=== PATIENT | male | born 1995 | race African-American/Black ===

== ENCOUNTER 2021-03-25 07:49 | Emergency (ER) | payer SELFPAY ==
[~2021-03-25] VITALS: Ht 180.3 cm; Wt 122.4 kg
[2021-03-25] MEDS ORDERED: inhaler (08:05)
[2021-03-25] MEDS ORDERED: DIPH25TA64 PO (08:05)
[2021-03-25] MEDS ORDERED: IBUP600T16 PO (08:05)
[2021-03-25 09:03] VITALS: BP 156/90
--- NOTE | 2021-03-25 09:15 | PHYS DOC ---
Past History Past Medical History: Anxiety Additional Past Medical Histor: Seasonal allergies Past Surgical History: No Surgical History Alcohol Use: None General Adult EDM: Chief Complaint: MEDICAL CLEARANCE HPI: HPI: Patient is a 25 year old male who presents for evaluation on the request of his work. 2 days ago while at work he began to feel what he thought was a panic attack. He began feeling very anxious and felt his breathing speed up. He had some numbness in his bilateral hands and a sensation of heart racing.. He recognized this as a panic attack, which she has had several times in the past. He isolated himself and sat down and focused on slow, deep breathing. The panic attack past and he has been asymptomatic for the past 2 days. His employer asked him to get a medical evaluation prior to return to work. He does have a history of anxiety, but does not take any medications for it. Only medications are occasional ibuprofen and Benadryl for seasonal allergies. Denies taking large doses of Benadryl. Denies any chest pain, shortness of breath, cough, congestion, sore throat. No Covid contacts. No lower extremity edema or recurrent palpitations. No headaches. No speech difficulty, weakness, recurrent numbness, coordination difficulty or other neurologic symptoms. Review of Systems: Review of Systems: Constitutional: Denies fever or chills Eyes: Denies change in visual acuity HENT: Denies nasal congestion or sore throat Respiratory: Denies cough or shortness of breath Cardiovascular: Denies chest pain or edema. Reported brief self-limited palpitations. GI: Denies abdominal pain, nausea, vomiting, bloody stools or diarrhea : Denies dysuria Musculoskeletal: Denies back pain or joint pain Integument: Denies rash Neurologic: Denies headache, focal weakness. reported brief self-limited numbness in bilateral hands. Endocrine: Denies polyuria or polydipsia Lymphatic: Denies swollen glands Psychiatric: Reports an anxiety attack Allergies: Allergies: Allergies Coded Allergies Type Severity Reaction Last Updated Verified No Known Drug Allergies 03/25/21 No Physical Exam: PE: Constitutional: Well developed, well nourished, no acute distress, non-toxic appearance. [] HENT: Normocephalic, atraumatic, bilateral external ears normal, oropharynx moist, no oral exudates, nose normal. [] Eyes: PERRLA, EOMI, conjunctiva normal, no discharge. [] Neck: Normal range of motion, no tenderness, supple, no stridor. [] Cardiovascular:Heart rate regular rhythm, no murmur [] Lungs & Thorax: Bilateral breath sounds clear to auscultation [] Abdomen: Bowel sounds normal, soft, no tenderness, no masses, no pulsatile masses. [] Skin: Warm, dry, no erythema, no rash. [] Back: No tenderness, no CVA tenderness. [] Extremities: No tenderness, no cyanosis, no clubbing, ROM intact, no edema. [] Neurologic: Alert, oriented to person, place, time. Face is symmetric. Speech is normal. Cranial nerves III-XII intact. 5/5 strength in bilateral upper and lower extremities in all dermatomes. No dysmetria with [id number] or [id number] testing. Gait is stable. Psychologic: Affect normal, judgement normal, mood normal. [] Current Patient Data: Vital Signs: Vital Signs Date Time Temp Pulse Resp B/P (MAP) Pulse Ox O2 Delivery O2 Flow Rate FiO2 03/25/21 09:03 72 18 156/90 (112) 99 Room Air 03/25/21 08:06 98.5 EKG: EKG: [] Radiology/Procedures: Radiology/Procedures: [] Heart Score: C/O Chest Pain: No Risk Factors: Risk Factors: DM, Current or recent (<one month) smoker, HTN, HLP, family history of CAD, obesity. Risk Scores: Score 0 - 3: 2.5% MACE over next 6 weeks - Discharge Home Score 4 - 6: 20.3% MACE over next 6 weeks - Admit for Clinical Observation Score 7 - 10: 72.7% MACE over next 6 weeks - Early Invasive Strategies Course & Med Decision Making: Course & Med Decision Making Pertinent Labs and Imaging studies reviewed. (See chart for details) Patient a 25-year-old male who presents 2 days after a resolved panic attack. Patient states that this feels similar to previous panic attacks. He presented only because his employer requested that he seek medical evaluation prior to re turning to work. He is currently at his normal baseline. He has normal vitals, normal physical examination including a comprehensive neuro exam. Do not feel that he requires any further work-up. Rocky Disclaimer: Rocky Disclaimer: This electronic medical record was generated, in whole or in part, using a voice recognition dictation system. Departure Departure: Impression: Primary Impression: Anxiety attack Disposition: HOME / SELF CARE / HOMELESS Condition: STABLE Patient Instructions: Anxiety and Panic Attacks JUAN DARBY MD Mar 25, 2021 09:15
== END 2021-03-25 09:04 | disposition home or self-care (01) ==
LOC: ER 07:49
DX: F41.0 Panic disorder [episodic paroxysmal anxiety] (principal)
CPT/HCPCS: 99281

== ENCOUNTER 2021-08-13 04:24 | Emergency (ER) | payer SELFPAY ==
[~2021-08-13] VITALS: Ht 177.8 cm; Wt 125.9 kg
[~2021-08-13 04:24] MED LIST: DIPH25TA64 PO; IBUP600T16 PO; inhaler
--- NOTE | 2021-08-13 04:42 | PHYS DOC ---
Past History Past Medical History: Anxiety Additional Past Medical Histor: Seasonal allergies Past Surgical History: No Surgical History Alcohol Use: None General Adult HPI: HPI: ".. I got sharp chest pain.. it woke me up... ". " I have this all the time.. but it worried me tonight.. It has been constant since 3:00 this morning. He is here on the left chest and goes into my neck... This seemed to hurt more when I take a deep breath or cough.." Patient is a 26 year old male who presents with above hx and complaints of sharp chest pains. Pain on Lt chest and is increased with deep breaths and cough. Some radiation in Lt side of neck. Pt. Hx of Asthma- and periodic use of MDI. Does have a hx of anxiety. Hx. COVID vaccination x 2. No Flu vaccination. Patient denies any trauma. No recent travel. No severe ill contacts. Patient does smoke tobacco. Patient does not follow her regular doctor. Patient does have past history of anxiety, panic attacks and seasonal allergies. Patient does not do illicit drugs other than marijuana. Patient denies any family history of DVTs or MIs at a younger age. Review of Systems: Review of Systems: Constitutional: Denies fever or chills Eyes: Denies change in visual acuity HENT: Denies nasal congestion or sore throat Respiratory: Complains of shortness of breath Cardiovascular: Complains of left-sided chest pain that radiates into his neck GI: Denies abdominal pain, nausea, vomiting, bloody stools or diarrhea : Denies dysuria Musculoskeletal: Denies back pain or joint pain Integument: Denies rash Neurologic: Denies headache, focal weakness or sensory changes Endocrine: Denies polyuria or polydipsia Lymphatic: Denies swollen glands Psychiatric: Complains of anxiety Family History: Family History: Noncontributory to presentation Current Medications: Current Meds: See nursing for home meds Allergies: Allergies: Allergies Coded Allergies Type Severity Reaction Last Updated Verified No Known Drug Allergies 03/25/21 No Physical Exam: PE: Constitutional: Emotional distress, non-toxic appearance. [] HENT: Normocephalic, atraumatic, bilateral external ears normal, oropharynx moist, no oral exudates, nose normal. [] Eyes: PERRLA, EOMI, conjunctiva normal, no discharge. Glasses Neck: Normal range of motion, no tenderness, supple, no stridor. [] Cardiovascular: Bradycardia heart rate regular rhythm, no murmur [] monitor shows a sinus rhythm with no acute morphology. Lungs & Thorax: Bilateral breath sounds apex with scattered wheezes and some bilateral basilar crackles on auscultation [] Abdomen: Bowel sounds normal, soft, no tenderness, no masses, no pulsatile masses. Obese. Skin: Warm, dry, no erythema, no rash. [] Back: No tenderness, no CVA tenderness. [] Extremities: No tenderness, no cyanosis, no clubbing, ROM intact, no edema. No cording appreciated Neurologic: Alert and oriented X 3, normal motor function, normal sensory function, no focal deficits noted. [] Psychologic: Affect very anxious, judgement normal, mood normal. [] EKG: EKG: My interpretation EKG shows a sinus rhythm at 62 bpm. No acute morphology. Time of this EKG is 0459 hrs. [] My interpretation of 2nd EKG shows a sinus bradycardia at 60 bpm. No acute morphology. No acute interval change from prior EKG time of EKG is 541 hours Radiology/Procedures: Radiology/Procedures: [][place] [address] IMAGING REPORT Signed PATIENT: MARCIA RUCKER: [id number] : 05/05/1947 LOCATION: ER AGE: 74 SEX: M EXAM STATUS: PRE ER ORD. PHYSICIAN: MARCIEL GONZALEZ MD REASON: co, tachy PROCEDURE: PORTABLE CHEST 1V EXAM: CHEST ONE VIEW. HISTORY: Tachycardia. COMPARISON: None. FINDINGS: A frontal view of the chest is obtained. There are mild interstitial opacities in the bases. There is no pneumothorax or pleural effusion. The heart is not enlarged. IMPRESSION: 1. Mild basilar interstitial infiltrates. Correlate for mild pulmonary edema or atypical pneumonia. Electronically signed by: Venice Jacobson MD (08/13/2021 4:50 AM) [facility] DICTATED AND SIGNED BY: JUAN JACOBSON MD DATE: 08/13/21 [id number] CC: MARICEL GONZALEZ MD; BRET WORRELL MD ~MTH0 [address] [address] IMAGING REPORT Signed PATIENT: LUIS CARBAJAL AACCOUNT: [id number] : 1995 LOCATION: ER AGE: 26 SEX: M EXAM STATUS: REG ER ORD. PHYSICIAN: MARICEL GONZALEZ MD REASON: cp PROCEDURE: PORTABLE CHEST 1V EXAM: CHEST ONE VIEW. HISTORY: Chest pain. COMPARISON: None. FINDINGS: A frontal view of the chest is obtained. There are mild airspace opacities in the bases. There is no pneumothorax or pleural effusion. The heart is not enlarged. IMPRESSION: 1. Mild basilar atypical infiltrates. Electronically signed by: Venice Jacobson MD (08/13/2021 5:03 AM) [facility] DICTATED AND SIGNED BY: JUAN JACOBSON MD DATE: 08/13/21501 CC: MARICEL GONZALEZ MD; PCP,NO ~MTH0 0 Heart Score: C/O Chest Pain: Yes HEART Score for Chest Pain: HEART Score for Chest Pain Response (Comments) Value History Slighlty/Non-Suspicious 0 ECG Normal 0 Age < 45 0 Risk Factors No Risk Factors 0 Troponin < Normal Limit 0 Total 0 Risk Factors: Risk Factors: DM, Current or recent (<one month) smoker, HTN, HLP, family history of CAD, obesity. Risk Scores: Score 0 - 3: 2.5% MACE over next 6 weeks - Discharge Home Score 4 - 6: 20.3% MACE over next 6 weeks - Admit for Clinical Observation Score 7 - 10: 72.7% MACE over next 6 weeks - Early Invasive Strategies Course & Med Decision Making: Course & Med Decision Making Pertinent Labs and Imaging studies reviewed. (See chart for details)\\ Use MDI 2 puffs 4 times a day. Take Zithromax 250 a day. Follow-up primary care. Self isolate the next 5 days. Tylenol and ibuprofen needed for discomfort. Push fluids. Return if any concerns. Impression: 1. Chest pain-chest wall 2. Atypical pneumonia [] Rocky Disclaimer: Rocky Disclaimer: This electronic medical record was generated, in whole or in part, using a voice recognition dictation system. Departure Departure: Referrals: PCP,LEIDY (PCP) Scripts Azithromycin (ZITHROMAX) 250 Mg Tablet 250 MG PO DAILY for ANTI-BIOTIC, #5 TAB 0 Refills Prov: MARICEL GONZALEZ MD 08/13/21 MARICEL GONZALEZ MD Aug 13, 2021 04:42
[2021-08-13] MEDS ORDERED: IV RINGERS SOLUTION,LACTATED 1,000 ML IV SCH (04:45)
[2021-08-13] MEDS ORDERED: ASPIRIN CHEWABLE 81 MG TABLET. PO ONE (04:45)
--- NOTE | 2021-08-13 05:05 | RAD ---
EXAM: CHEST ONE VIEW. HISTORY: Chest pain. COMPARISON: None. FINDINGS: A frontal view of the chest is obtained. There are mild airspace opacities in the bases. There is no pneumothorax or pleural effusion. The hea rt is not enlarged. IMPRESSION: 1. Mild basilar atypical infiltrates. Electronically signed by: Venice Jacobson MD (08/13/2021 5:03 AM) [facility]
--- NOTE | 2021-08-13 05:09 | EKG ---
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
[2021-08-13 05:12] LABS: BASO # 0.1 x10^3/uL (0.0-0.2); BASO % 1 % (0-3); EOS # 0.4 x10^3/uL (0.0-0.7); EOS % 4 % (0-3); HEMOGLOBIN 15.6 g/dL (13.0-17.5); LYMPH # 2.9 x10^3/uL (1.0-4.8); LYMPH % 32 % (24-48); MEAN CORPUSCULAR HEMOGLOBIN 31 pg (25-35); MEAN CORPUSCULAR HGB CONC 35 g/dL (31-37); MEAN CORPUSCULAR VOLUME 90 fL (79-100); MONO # 0.7 x10^3/uL (0.0-1.1); MONO % 8 % (0-9); NEUT # 4.9 x10^3uL (1.8-7.7); NEUT % 55 % (31-73); PLATELET COUNT 224 x10^3/uL (140-400); RED BLOOD COUNT 5.01 x10^6/uL (4.30-5.70); RED CELL DISTRIBUTION WIDTH 13.2 % (11.5-14.5)
[2021-08-13 05:23] LABS: CALCIUM 8.7 mg/dL (8.5-10.1); CREATININE 0.9 mg/dL (0.7-1.3); GFR 125.4; POTASSIUM 3.5 mmol/L (3.5-5.1)
[2021-08-13 05:34] LABS: ALBUMIN 3.9 g/dL (3.4-5.0); DIRECT BILIRUBIN 0.1 mg/dL (0.0-0.2); TOTAL BILIRUBIN 0.4 mg/dL (0.2-1.0); TOTAL PROTEIN 7.1 g/dL (6.4-8.2)
[2021-08-13] MEDS ORDERED: KETOROLAC 30 MG/ML VIAL. IVP ONE (05:45)
--- NOTE | 2021-08-13 06:01 | EKG ---
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
[2021-08-13 06:03] LABS: INFLUENZA A PATIENT NEGATIVE (NEGATIVE); INFLUENZA B PATIENT NEGATIVE (NEGATIVE)
[2021-08-13] MEDS ORDERED: AZIT250T PO (06:05)
[2021-08-13] MEDS ORDERED: ALBUTEROL SULFATE 8GM INHALER. INH ONE (06:15)
[2021-08-13] MEDS ORDERED: AZITHROMYCIN 250 MG TABLET. PO ONE (06:15)
[2021-08-13 06:30] VITALS: BP 122/64
== END 2021-08-13 06:35 | disposition home or self-care (01) ==
LOC: ER 04:24
DX: J18.9 Pneumonia, unspecified organism (principal); F41.9 Anxiety disorder, unspecified; Z20.822 Contact with and (suspected) exposure to COVID-19
CPT/HCPCS: 36415; 71045; 80048; 80076; 82550; 83690; 83735; 83880; 84443; 84484; 85025; 85379; 85610; 85730; 87428; 93005; 94640; 96361; 96374; 99285; J1885; J7120; 94664